=== PATIENT | female | born 1995 | race Caucasian/White ===

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

== ENCOUNTER → 2017-01-08 04:29 | Observation (INO) ==
[2017-01-08 03:49] LABS: Prothrombin Time 11.3 Seconds (9.4-12.1)
[2017-01-08 03:50] LABS: HIV-1&2 Antibody & p24 Ag Nonreactive (Nonreactive); Hepatitis B Surface Antigen Nonreactive (Nonreactive)
--- NOTE | 2017-01-08 04:27 | OB/GYN History & Physical ---
Date of Encounter: 01/08/17 Time of Encounter: 04:23 Assessment and Plan (1) 22 weeks gestation of Current visit: Yes Status: Acute admitted for observation (2) Fall Current visit: No Status: Acute Patient was triaged in ER and then sent to labor and delivery for observation. FHR appropriate for gestational age no contractions noted on monitor. History of Present Illness Chief complaint: FAll at 22w4d HPI: Ms. Newell is a 21 year old female per patient. Patient has no documentation of MABs. EDC 05/09/2017. Patient sees Dr. Dixon at [facility] but plans to deliver at [place] and would like to transfer care. Patient had a verbal altercation with someone around 2200 when she when to walk away she reported getting dizzy and possibly passing out. Patient states she fell straight back on her back and hit her head. Patient was seen an evaluated by ER. Patient was cleared by ER after CT scan and lab work. Patient reports +FM, denies LOF or VB. Patient denies any cramping at this time. Blood type is O+. Patient denies any problems with placenta. Patient reports she is scheduled in 2 weeks to see a provider at [facility]. Will request records. Patient plans to call OB office to request transfer of care. Past Med Surg Social Fam HX - Past Medical History Source: patient Medical history: no medical history Psychiatric history: anxiety, depression, panic disorder - Past Surgical History Surgical History: no surgical history - Social History Smoking Status: Never smoker Smokeless Tobacco Status: No Alcohol use: none Drug use: marijuana Activity Level: Independent ambulation Recent Out of Country Travel Within the Last 8 Weeks: No Exposure or Possible Exposure to Illness During Travel: No - Family History Mother Adopted: No Family Member Ethnicity: Non- Living Status: Still Living Hx Family Cardiac Disorders: No Hx Family Respiratory Disorders: Yes Hx Family Cancer: No Hx Family GI Disorders: Yes Hx Family Genitourinary Disorders: Yes Hx Family Endocrine Disorder: Yes Hx Family Musculoskeletal Disorders: No Hx Family Neuromuscular Disorders: No Hx Family Neurologic Disorders: No Hx Family HEENT Disorders: No Hx Family Autoimmune Disorders: No Hx Family Reproductive Disorders: No Hx Family Psychosocial Disorders: No Hx Family Medical Disorders: Yes (speep apnea) Obstetrical History - Pregnancies : 1 Para: 0 Term: 0 : 0 Ab's: 0 Medications and Allergies Icg042/Iron Fumarate/FA/Dss [ 19 Tablet] 1 tab PO DAILY 01/08/17 [ History] Allergies No Known Allergies Allergy (Verified 10/29/16 22:48) Review of System OB - Constitutional Constitutional ROS IM: headache(s) (Patient reported a headache after fall but no complaints at this time), no chills, no fatigue, no fever(s) - Cardiovascular Cardiovascular: no chest pain, no irregular heart rhythm, no palpitations, no syncope - Respiratory Respiratory: no cough - Gastrointestinal Gastrointestinal: no abdominal pain, no constipation, no cramping, no diarrhea, no heartburn, no nausea, no vomiting - Genitourinary Genitourinary: no abnormal vaginal bleeding, no dysuria, no flank pain, no urinary frequency, no urinary hesitancy, no urinary urgency, no vaginal discharge, no vaginal odor, no vaginal pruritis - Neurological Nerological: no abnormal speech, no confusion, no dizziness, no loss of vision, no syncope, no vertigo Exam - Constitutional Constitutional: well developed, well nourished, no acute distress, average body habitus - HEENT HEENT: Normocephaly, Mucus Membranes Moist - Neck Neck exam: full ROM, supple - Lungs Respiratory exam: CTAB - Cardiovascular Cardiovascular exam: RRR, +S1, +S2 - Abdomen Abdomen: Present: bowel sounds normal, gravid, non tender - Extremities Extremities exam: full ROM, normal capillary refill, normal inspection Deep Tendon Reflex Grade: 2+ Normal (no clonus) - Comments Comments: FHR 150 bpm per doppler. FF 2/U. Results All other labs normal. - VTE Reasons for not Prescribing Prophylaxis: Treatment not Indicated - Low risk for VTE
--- NOTE | 2017-01-08 04:35 | Discharge Summary ---
Date of Encounter: 01/08/17 Time of Encounter: 04:33 - Discharge Diagnosis (1) 22 weeks gestation of Priority: Primary Status: Acute Comments: patient for observation (2) Fall Priority: Secondary Status: Acute Comments: Patient evaluated in ED and L&D. Due to poor history patient was offered to stay until morning patient declines and requests to go home. - Discharge Medications Home Medications: Hkl523/Iron Fumarate/FA/Dss [ 19 Tablet] 1 tab PO DAILY 01/08/17 [ History] Allergies/Adverse Reactions: Allergies No Known Allergies Allergy (Verified 10/29/16 22:48) Data Procedures and tests throughout hospitalization: Laboratory Tests 01/08/17 01/08/17 01/08/17 03:00 03:00 03:00 PT 11.3 INR 1.0 Hep Bs Antigen Nonreactive HIV Ag/Ab Combo Qual Nonreactive Blood Type O POSITIVE Labs on day of discharge: Labs from last 24 hours 01/08/17 01/08/17 01/08/17 03:00 03:00 03:00 PT 11.3 INR 1.0 Hep Bs Antigen Nonreactive HIV Ag/Ab Combo Qual Nonreactive Blood Type O POSITIVE Date of admission: 01/08/17 02:38 Primary care physician: Nikhil Moran, Discharging clinician: Neetu Tao Anticipated date of discharge: 01/08/17 - Patient Status Disposition: Home, Self-Care Condition: Good Functional capacity at discharge: independent ambulation - Discharge Instructions Follow Up With: Nikhil Moran MD [Primary Care Provider] - Additional Instructions: LABOR AND DELIVERY DISCHARGE INSTRUCTIONS Signs and Symptoms to be Reported to your Doctor Immediately: * Sudden gush, continuous or intermittent lead of fluid from vagina (note the time of gush and color of fluid) * Onset of bright red vaginal bleeding with or without pain (if you had a vaginal exam during this visit you may notice some dark red spotting. This is normal.) * Lower abdominal cramping or backache that is premenstrual-like feeling. * More than 6 contractions in one hour. * Burning during urination, having to urinate more frequently or pain in your mid-back. * A change in the baby's activity. This could be an increase or decrease in activity. * Severe headache which does not go away with tylenol. * Sudden swelling in the face, hands, arms and/or legs. * Upper abdominal pain - sometimes associated with heartburn or nausea and is not relieved by Maalox, Mylanta or Tums. * Dizziness or blurred vision or visual disturbances (seeing stars/lights). * Kick Counts One hour after a meal, lay down on one side in a quiet place. Count the number of marcelle the baby moves during an hour. If less than 6 movements, notify your physician. Diet: *Force fluids - 8-10 tall glasses of fluid per day. May include popsicles and jello. 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
[2017-01-09 11:30] LABS: Varicella Zoster IgG Antibody Positive
[2017-01-09 14:15] LABS: Rubella IgG Antibody POSITIVE (POSITIVE)
== END | disposition home or self-care (01) ==
LOC: 1NENULAB
PROVIDERS: ADMIT Advanced Practice Midwife; ATTEND Advanced Practice Midwife

== ENCOUNTER 2017-02-16 | Observation (INO) ==
[2017-02-16 00:08] LABS: Bilirubin,Urine Small (Negative); Blood,Urine Negative (Negative); Clarity,Urine Cloudy (Clear); Color,Urine Dark Yellow (Yellow); Glucose,Urine (UA) Normal (Normal); Ketones,Urine Negative (Negative); Leukocyte Esterase,Urine Small (Negative); Nitrite,Urine Negative (Negative); PH,Urine 6.5 pH Units (5.0-8.0); Protein,Urine Trace mg/dL (Neg-Trace); Specific Gravity,Urine 1.028 (1.010-1.025); Urobilinogen,Urine Normal (Normal)
[2017-02-16 00:10] LABS: Bacteria,Urine Few per hpf (None-Few); Hyaline Casts,Urine None Seen per lpf (None-Few); RBC,Urine 0-3 per hpf (0-3); Squamous Epithelial Cell,Urine Many per lpf (None-Few)
[2017-02-16 00:50] LABS: Amphetamine Screen,Urine Negative ng/mL (Cutoff=1000); Barbiturate Screen,Urine Negative ng/mL (Cutoff=200); Benzodiazepines Screen,Urine Negative ng/mL (Cutoff=200); Cannabinoid Screen,Urine Negative ng/mL (Cutoff = 50); Cocaine Screen,Urine Negative ng/mL (Cutoff= 300); Opiate Screen,Urine Negative ng/mL (Cutoff=300); Phencyclidine Screen,Urine Negative ng/mL (Cutoff=25)
--- NOTE | 2017-03-03 10:57 | OB/GYN Progress Note ---
Date of Encounter: 03/03/17 Time of Encounter: 10:56 (Triaged by RN) - Assessment and Plan (1) Threatened labor Status: Acute Qualifiers: Trimester: unspecified trimester Qualified Code(s): O47.00 - False labor before 37 completed weeks of gestation, unspecified trimester; O60.00 - labor without delivery, unspecified trimester Objective - Labs Labs: Abnormal lab results Urine Clarity Cloudy (Clear) A 02/15/17 23:50 Ur Specific [place] 1.028 (1.010-1.025) H 02/15/17 23:50 Urine Bilirubin Small (Negative) H 02/15/17 23:50 Ur Leukocyte Esterase Small (Negative) H 02/15/17 23:50 Urine Microscopic WBC 5-15 per hpf (0-3) H 02/15/17 23:50 Ur Squamous Epith Cells Many per lpf (None-Few) H 02/15/17 23:50 Ur Culture Indicated? YES (NO) A 02/15/17 23:50
== END 2017-02-16 00:47 | disposition home or self-care (01) ==
LOC: 1NENULAB

== ENCOUNTER → 2017-04-11 02:00 | Observation (INO) ==
[2017-04-11 00:28] LABS: Bilirubin,Urine Negative (Negative); Blood,Urine Negative (Negative); Clarity,Urine Turbid (Clear); Color,Urine Yellow (Yellow); Glucose,Urine (UA) Normal (Normal); Ketones,Urine Negative (Negative); Leukocyte Esterase,Urine Moderate (Negative); Nitrite,Urine Negative (Negative); Protein,Urine 30 mg/dL (Neg-Trace); Specific Gravity,Urine > 1.030 (1.010-1.025); Urobilinogen,Urine Normal (Normal)
[2017-04-11 00:30] LABS: Bacteria,Urine Few per hpf (None-Few); RBC,Urine 0-3 per hpf (0-3); Squamous Epithelial Cell,Urine Moderate per lpf (None-Few)
[2017-04-11 00:31] LABS: Amphetamine Screen,Urine Negative ng/mL (Cutoff=1000); Barbiturate Screen,Urine Negative ng/mL (Cutoff=200); Benzodiazepines Screen,Urine Negative ng/mL (Cutoff=200); Cannabinoid Screen,Urine Negative ng/mL (Cutoff = 50); Cocaine Screen,Urine Negative ng/mL (Cutoff= 300); Opiate Screen,Urine Negative ng/mL (Cutoff=300); Phencyclidine Screen,Urine Negative ng/mL (Cutoff=25)
--- NOTE | 2017-04-11 00:43 | Discharge Summary ---
Date of Encounter: 04/11/17 Time of Encounter: 00:43 - Discharge Diagnosis (1) Vaginal discharge during Priority: Primary Status: Acute Comments: Ms Susana rivera at 35 weeks gestation presents to labor and delivery triage by squad with c/o leaking of fluid from her vagina. She is a poor historian. She does not know what medications she takes. States she has gestational diabetes, but does not check blood sugar. She also states that she has vaginal herpes and warts, but is not sure what medication she is on. She denies headache, vision changes, epigastric pain, vaginal bleeding, and cramping. She states she has not hand intercourse in the past 48 hours, but states that she douches frequently and often takes baths. Encouraged patient to stop douching and to stop taking frequent baths as this is likely contributing to her vaginal discharge and discomfort. NST -reactive Urinalysis - dehydration, encouraged to increase oral water intake and decrease all other oral liquid intake nitrazine - negative, negative for pooling - no discharge on noted on glove. SVE - 1-2/thick/high posterior Discharge home with routine follow up for care with Dr Jones. Encouraged patient to drive to be seen where her physician can see her. Discussed the importance of the being seen for care with her primary OB /COMPUTER TECH. Qualifiers: Trimester: third trimester Qualified Code(s): O26.893 - Other specified related conditions, third trimester; N89.8 - Other specified noninflammatory disorders of vagina (2) NST (non-stress test) reactive Priority: Secondary Status: Acute Comments: Reactive NST Category I tracing (3) 35 weeks gestation of Priority: Secondary Status: Acute - Discharge Medications Home Medications: Ftf938/Iron Fumarate/FA/Dss [ 19 Tablet] 1 tab PO DAILY 01/08/17 [ History] Allergies/Adverse Reactions: 3 Allergy/AdvReac Type Severity Reaction Status Date / Time No Known Allergies Allergy Verified 02/15/17 23:34 Data Procedures and tests throughout hospitalization: Laboratory Tests 04/11/17 00:19 Urine Color Yellow Urine Clarity Turbid A Urine pH 6.0 Ur Specific [place] > 1.030 H Urine Protein 30 H Urine Glucose (UA) Normal Urine Ketones Negative Urine Blood Negative Urine Nitrite Negative Urine Bilirubin Negative Urine Urobilinogen Normal Ur Leukocyte Esterase Moderate H Urine Microscopic RBC 0-3 Urine Microscopic WBC 3-5 H Ur Squamous Epith Cells Moderate H Urine Bacteria Few Ur Culture Indicated? YES A Labs on day of discharge: Labs from last 24 hours 04/11/17 00:19 Urine Color Yellow Urine Clarity Turbid A Urine pH 6.0 Ur Specific [place] > 1.030 H Urine Protein 30 H Urine Glucose (UA) Normal Urine Ketones Negative Urine Blood Negative Urine Nitrite Negative Urine Bilirubin Negative Urine Urobilinogen Normal Ur Leukocyte Esterase Moderate H Urine Microscopic RBC 0-3 Urine Microscopic WBC 3-5 H Ur Squamous Epith Cells Moderate H Urine Bacteria Few Ur Culture Indicated? 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 No decels. No contractions noted per toco or palpation. Category I tracing. Reactive NST - Extremities Exam Extremities exam IM: Present: normal capillary refill, normal inspection, radial pulses palpable and symmetrical - Neurological Exam Neurological exam: alert, oriented X3 - VTE Reasons for not Prescribing Prophylaxis: Treatment not Indicated - Low risk for VTE
[~2017-04-11 02:00] MED LIST changes: +FLUARIX QUAD 2017-18 36MOS UP/PF 0.5 ML SYRINGE IM ONE; -Mag Hydrox/Al Hydrox/Simeth 30 ML UDC PO ONE
== END | disposition home or self-care (01) ==
LOC: 1NENULAB
PROVIDERS: ADMIT Obstetrics & Gynecology; ATTEND Obstetrics & Gynecology

== ENCOUNTER 2017-05-04 11:41 | Inpatient (IN) ==
[2017-05-04] MEDS ORDERED: Ondansetron 4 MG/2 ML VIAL IVP PRN (12:27)
[2017-05-04] MEDS ORDERED: Famotidine 20 MG/2 ML VIAL IVP PRN (12:27)
[2017-05-04] MEDS ORDERED: Metoclopramide 10 MG/2 ML VIAL IVP PRN (12:27)
[2017-05-04] MEDS ORDERED: Ringers Solution, Lactated 1,000 ML IVC SCH (12:30)
[2017-05-04 12:46] LABS: Basophils % 0.3 %; Eosinophils % 0.1 %; Hematocrit 31.4 % (35.3-44.9); Hemoglobin 10.3 g/dL (11.5-15.4); Immature Granulocytes % 0.4 % (0-4); Lymphocytes # 3.1 K/mcL (0.6-4.6); Lymphocytes % 22.5 %; Mean Corpuscular HGB Conc 32.8 g/dL (31.6-35.5); Mean Corpuscular Hemoglobin 28.1 pg (28.0-33.3); Mean Corpuscular Volume 85.8 fL (83.0-100.0); Mean Platelet Volume 10.3 fL (9.4-12.4); Monocytes # 0.8 K/mcL (0.0-1.3); Monocytes % 5.6 %; Neutrophils # 9.9 K/mcL (1.6-8.9); Platelet Count 204 K/mcL (140-400); Red Blood Count 3.66 M/mcL (3.82-4.97); Red Cell Distribution Width 14.8 % (11.5-14.5); Segmented Neutrophils % 71.1 %
[2017-05-04] MEDS ORDERED: Penicillin G Potassium 5,000,000 UNIT in D5% in Water (Mini-Bag+) 100 ML IVPB ONE (12:54)
[2017-05-04 13:25] LABS: Amphetamine Screen,Urine Negative ng/mL (Cutoff=1000); Barbiturate Screen,Urine Negative ng/mL (Cutoff=200); Benzodiazepines Screen,Urine Negative ng/mL (Cutoff=200); Cannabinoid Screen,Urine Negative ng/mL (Cutoff = 50); Cocaine Screen,Urine Negative ng/mL (Cutoff= 300); Opiate Screen,Urine Negative ng/mL (Cutoff=300); Phencyclidine Screen,Urine Negative ng/mL (Cutoff=25)
--- NOTE | 2017-05-04 13:39 | OB/GYN History & Physical ---
Date of Encounter: 05/04/17 Time of Encounter: 13:19 Assessment and Plan (1) 38 weeks gestation of Current visit: Yes Status: Acute admitted for SROM Will treat with PCN prophylaxis due to unknown GBS status (2) Herpes simplex Current visit: Yes Status: Acute Patient taking acyclovir daily. History of Present Illness Chief complaint: SROM HPI: Ms. Newell is a 21 year old female @ 38w6d presents to labor and delivery with c/o SROM at 0500 this morning at . Patient reports irregular contractions. Patient denies any color or odor to fluid. Patient receives care by Dr. Jones at [facility]. We have received records however GBS culture results are unknown. Will start PCN per protocol. Patient reports she has GDM and was given a po medication for it she is unsure of the name of the medication however, we have the results to her 1 hour gtt at 115 which is normal. Patient also reports history of herpes and is taking Acylovir daily. Blood type: O+, Rubella: Immune, Hep B: Nonreactive. Past Med Surg Social Fam HX - Past Medical History Source: patient Medical history: asthma Psychiatric history: anxiety, ADHD, depression, panic disorder - Past Surgical History Surgical History: no surgical history - Social History Smoking Status: Former smoker Smokeless Tobacco Status: No Alcohol use: none Drug use: marijuana, methamphetamine Occupational status: employed Current living situation: Home - Independent Activity Level: Independent ambulation Recent Out of Country Travel Within the Last 8 Weeks: No Exposure or Possible Exposure to Illness During Travel: No - Family History Mother Adopted: No Family Member Ethnicity: Non- Living Status: Still Living Hx Family Cardiac Disorders: No Hx Family Respiratory Disorders: Yes Hx Family Cancer: No Hx Family GI Disorders: Yes Hx Family Endocrine Disorder: Yes Hx Family Neuromuscular Disorders: No Hx Family Neurologic Disorders: No Hx Family HEENT Disorders: No Hx Family Autoimmune Disorders: No Obstetrical History - Pregnancies : 5 Para: 0 Term: 0 : 0 Ab's: 0 Livin Medications and Allergies [id number]/Iron Fumarate/FA/Dss [ 19 Tablet] 1 tab PO DAILY 01/08/17 [ History] Acyclovir [Zovirax] 400 mg PO DAILY 05/04/17 [History] 3 Allergy/AdvReac Type Severity Reaction Status Date / Time No Known Allergies Allergy Verified 02/15/17 23:34 Review of System OB - Constitutional Constitutional ROS IM: headache(s), no chills, no fever(s) - Cardiovascular Cardiovascular: no chest pain, no edema, no palpitations, no pedal edema, no rapid heart rate, no syncope - Respiratory Respiratory: no cough - Gastrointestinal Gastrointestinal: cramping, no diarrhea, no heartburn, no nausea, no vomiting - Genitourinary Genitourinary: vaginal discharge, no abnormal vaginal bleeding, no flank pain, no urinary incontinence, no urinary urgency, no vaginal odor Exam - Constitutional Constitutional: well developed, well nourished, no acute distress, average body habitus - HEENT HEENT: Normocephaly, Mucus Membranes Moist - Neck Neck exam: full ROM, supple - Lungs Respiratory exam: CTAB - Cardiovascular Cardiovascular exam: RRR, +S1, +S2 - Abdomen Abdomen: Present: bowel sounds normal, gravid, non tender - Extremities Extremities exam: full ROM, normal inspection Deep Tendon Reflex Grade: 2+ Normal - Cervix Dilation: 3 Effacement: 80 Station: -2 - Uterus Uterus exam: Present: normal size, normal contour - Anus/Rectum Anus/Rectum: Present: normal perianal skin - Comments Comments: FHR 140 bpm moderate variability +15x15 accels no decels noted. Cat. 1 tracing. Contractions irregular. Results Result Diagrams: 05/04/17 12:35 Abnormal lab results WBC 13.9 K/mcL (4.3-11.1) H 05/04/17 12:35 RBC 3.66 M/mcL (3.82-4.97) L 05/04/17 12:35 Hgb 10.3 g/dL (11.5-15.4) L 05/04/17 12:35 Hct 31.4 % (35.3-44.9) L 05/04/17 12:35 RDW 14.8 % (11.5-14.5) H 05/04/17 12:35 Neutrophils # 9.9 K/mcL (1.6-8.9) H 05/04/17 12:35 All other labs normal. - VTE Reasons for not Prescribing Prophylaxis: Treatment not Indicated - Low risk for VTE
[2017-05-04] MEDS ORDERED: *HR* Nalbuphine 20 MG/ML AMPUL IVP PRN (14:47)
[2017-05-04] MEDS ORDERED: *HR* Nalbuphine 20 MG/ML AMPUL ONE (14:51)
[2017-05-04] MEDS: Penicillin G Potassium 2,500,000 UNIT in D5% in Water 100 ML IVPB SCH ×2 (16:30→20:01)
[2017-05-04] MEDS ORDERED: Oxytocin 20 units/ LR 1000 mL 20 UNIT/1,000 ML BAG IVC SCH (17:00)
--- NOTE | 2017-05-04 17:23 | OB Labor Progress Note ---
Date of Encounter: 05/04/17 Time of Encounter: 17:21 Labor Progress Note - Subjective Subjective: Patient reports contractions are getting stronger. Discussed POC with patient. Patient denies any questions or concerns. - Cervix Cervix: 5/100/-1 - Heart Tones Heart Tones: 135 bpm moderate variability +15x15 accels no decels noted. - [place]: irregular contractions - Interventions Interventions: SVE, IUPC placed without difficulty. - Plan Plan: Patient ready for epidural for pain management. Anesthesia notified.
[2017-05-04] MEDS ORDERED: Epidural Premix (fent/bupiv) 110 ML EP ONE (17:40)
--- NOTE | 2017-05-04 18:20 | OB Labor Progress Note ---
Date of Encounter: 05/04/17 Time of Encounter: 18:18 Labor Progress Note - Subjective Subjective: Patient resting with epidural in placed. - Cervix Cervix: 6/100/0 - Heart Tones Heart Tones: 135 bpm moderate variability +15x15 accels no decels noted. - [place]: 3-4 min apart - Interventions Interventions: SVE - Plan Plan: Continue labor management.
--- NOTE | 2017-05-04 19:49 | OB Labor Progress Note ---
Date of Encounter: 05/04/17 Time of Encounter: 19:47 Labor Progress Note - Subjective Subjective: Patient resting comfortably with epidural in place. Patient reports some pressure. Discussed POC with patient. Patient denies any questions or concerns. - Cervix Cervix: 9.5/100/0 - Heart Tones Heart Tones: 130 bpm moderate variability +15x15 accels no decels noted. Cat. 1 tracing. - [place]: 2-3 min apart - Interventions Interventions: SVE - Plan Plan: Continue labor management.
[2017-05-04] MEDS ORDERED: Acetaminophen 325 MG TABLET PO PRN ×2 (20:27→22:17)
--- NOTE | 2017-05-04 21:27 | Anesthesia Evaluation PreOp ---
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 History: Other (ADHD ASTHMA HPV HERPES) Other Medical History: Denies Any Significant HX Anesthesia History: No Prior Anesthetic Complications : Yes Test: Positive Alcohol Use: none Drug use: none, marijuana, methamphetamine Medications and Allergies [id number]/Iron Fumarate/FA/Dss [ 19 Tablet] 1 tab PO DAILY 01/08/17 [ History] Acyclovir [Zovirax] 400 mg PO DAILY 05/04/17 [History] 3 Allergy/AdvReac Type Severity Reaction Status Date / Time No Known Allergies Allergy Verified 02/15/17 23:34 - Meds/Allergy Pre-op Review Medications Reviewed: Yes Allergies Reviewed: Yes Beta Blockers on Current Med List: No Anesthesia Results - Labs 05/04/17 12:35 Anesthesia Exam - HEENT Pupil (Motor): Pupils equal Mallampati: II Teeth: Normal Oral Opening: Greater than 3 - FEEDER CATCHER LOC: Oriented FEEDER CATCHER Motor: Normal RUE, Normal LUE, Normal RLE, Normal LLE, Normal Face FEEDER CATCHER Sensory: Normal: RUE, LUE, RLE, LLE, Face - Cardiac Rhythm: Regular Murmur: None JVD: No Carotid Bruit: No - Pulmonary Breath Sounds: bilateral Clear Respiratory Effort: Symmetrical Anesthesia Assess/Plan ASA Score: 2 Modified Nitish Scale for Level of Consciousness: Cooperative, oriented, and tranquil Anesthetic Plan: Regional Autologous Blood: No Monitoring Plan: Standard Monitors
[2017-05-04] MEDS: Oxytocin 20 units/ LR 1000 mL 20 UNIT/1,000 ML BAG IVC SCH ×2 (21:30→22:53)
[2017-05-04] MEDS ORDERED: Epidural Premix (fent/bupiv) 110 ML EP SCH (21:30)
--- NOTE | 2017-05-04 21:30 | Anesthesia Procedures ---
Date of Encounter: 05/04/17 Time of Encounter: 17:30 Procedures: Anesthesia - Epidural/Spinal Patient ID/Chart reviewed: Yes Patient examined: Yes OB Eval: Gestational age: 38.6 OB Eval: : 5 OB Eval: Contractions: Non-stressed pattern Consent Obtained: Yes Supplemental Oxygen: None/Room Air Site Prep: Aseptic Technique, Sterile prep and drape, Povidone-Iodine 1% Patient position: upright Local Anesthetic: Lidocaine 1% Amount of Local Anesthetic used: 3 Touhy Needle Gauge: 18 Touhy Needle Depth (cm): 6 Catheter Depth at Skin (cm): 7 Test Dose (1.5% Lido + Epi): Volume given (mls): 3 Test Dose Result: Negative Infusion Med: 0.125% Bupivacaine w/ 2 mcg/ml Fentanyl Infusion Rate (mls/hr): [address]: Tegaderm, Tape Interspace Used: L4-L5 Loss of Resistance (KRYSTAL): Yes Blood: No CSF: No Paresthesia: No Procedure: stable see nursing notes
--- NOTE | 2017-05-04 21:51 | OB/GYN Procedure Note ---
Delivery - Delivery Date: 05/04/17 Provider: Neetu Tao Intrapartum events: none Delivery induction: none Delivery monitor: external FHT, external uterine Anesthesia: epidural Estimated Blood Loss: 150 - (s) A Infant Delivery Date: 05/04/17 Delivery Time: 21:23 Presentation: vertex Position: JUAN CARLOS Route of delivery: Gender: Female Viability: Viable Pounds: 7 Ounces: 3 Weight Gram: 3260 kg at 1 minute: 8 at 5 mins: 9 Shoulder Dystocia: not encountered Specimens collected: cord blood Placenta: spontaneous Cord: 3 umbilical vessels - Repair Episiotomy: none Laceration Description: Vaginal (repaired with 3-0 vicryl) - Complications Delivery complications: none - Disposition Mom disposition: stable in LDR disposition: stable in LDR - Comments Comments: Called to LDR for delivery. Patient feeling pressure. Patient was complete and + 1. Patient was placed in stirrups and prepped for vaginal delivery. Under maternal effort patient spontaneously delivered a viable female over an intact perineum. No nuchal, no meconium or shoulder dystocia encountered. Infant was placed on maternal abdomen. Cord was clamped and cut after pulsation ceased. Cord blood collected. A small vaginal laceration was noted and repaired with 3-0 vicryl. Both Mother and are stable in LDR for recovery. All counts are correct.
[2017-05-04] MEDS ORDERED: Lanolin 7 G OINT...G. TP PRN (22:17)
[2017-05-04] MEDS: Ibuprofen 600 MG TABLET PO PRN (22:50)
--- NOTE | 2017-05-05 08:51 | Discharge Summary ---
Date of Encounter: 05/05/17 Time of Encounter: 08:49 - Discharge Diagnosis (1) Status post vaginal delivery Priority: Primary Status: Acute (2) 38 weeks gestation of Priority: Secondary Status: Resolved (3) Herpes simplex Priority: Secondary Status: Chronic - Discharge Medications Prescriptions: Ibuprofen [Motrin] 600 mg PO Q6HR PRN #60 tablet PRN Reason: Cramping Docusate [Colace] 100 mg PO BID #30 capsule Ferrous Sulfate 325 mg PO DAILY #30 tablet Home Medications: [id number]/Iron Fumarate/FA/Dss [ 19 Tablet] 1 tab PO DAILY 01/08/17 [ History] Acyclovir [Zovirax] 400 mg PO DAILY 05/04/17 [History] Docusate [Colace] 100 mg PO BID #30 capsule 05/05/17 [Rx] Ferrous Sulfate 325 mg PO DAILY #30 tablet 05/05/17 [Rx] Ibuprofen [Motrin] 600 mg PO Q6HR PRN #60 tablet 05/05/17 [Rx] Lanolin [Lansinoh] 1 appl TP TID PRN oint...g. 05/05/17 [Rx] Allergies/Adverse Reactions: 3 Allergy/AdvReac Type Severity Reaction Status Date / Time No Known Allergies Allergy Verified 02/15/17 23:34 Data Procedures and tests throughout hospitalization: Laboratory Tests 05/04/17 05/04/17 11:59 12:35 WBC 13.9 H RBC 3.66 L Hgb 10.3 L Hct 31.4 L MCV 85.8 MCH 28.1 MCHC 32.8 RDW 14.8 H Plt Count 204 MPV 10.3 Immature Gran % 0.4 Seg Neutrophils % 71.1 Lymphocytes % 22.5 Monocytes % 5.6 Eosinophils % 0.1 Basophils % 0.3 Neutrophils # 9.9 H Lymphocytes # 3.1 Monocytes # 0.8 Eosinophils # 0.0 Basophils # 0.0 Urine Opiates Screen Negative Ur Barbiturates Screen Negative Ur Phencyclidine Scrn Negative Ur Amphetamines Screen Negative U Benzodiazepines Scrn Negative Urine Cocaine Screen Negative U Marijuana (THC) Screen Negative Labs on day of discharge: Labs from last 24 hours 05/04/17 05/04/17 12:35 11:59 WBC 13.9 H RBC 3.66 L Hgb 10.3 L Hct 31.4 L MCV 85.8 MCH 28.1 MCHC 32.8 RDW 14.8 H Plt Count 204 MPV 10.3 Immature Gran % 0.4 Seg Neutrophils % 71.1 Lymphocytes % 22.5 Monocytes % 5.6 Eosinophils % 0.1 Basophils % 0.3 Neutrophils # 9.9 H Lymphocytes # 3.1 Monocytes # 0.8 Eosinophils # 0.0 Basophils # 0.0 Urine Opiates Screen Negative Ur Barbiturates Screen Negative Ur Phencyclidine Scrn Negative Ur Amphetamines Screen Negative U Benzodiazepines Scrn Negative Urine Cocaine Screen Negative U Marijuana (THC) Screen Negative Date of admission: 05/04/17 11:41 Primary care physician: PCP NONE Consults: 05/04/17 22:17 Consult to Elementary Supervisor [CONS] Routine Comment: Vaginal delivery, consult needed Consult to Edger Feeder [CONS] Routine Reason for SW Consult: + UDS Discharging clinician: Shirin Jackson Anticipated date of discharge: 05/05/17 - Patient Status Disposition: Home, Self-Care Condition: Good Functional capacity at discharge: independent ambulation Overall status at discharge: patient is progressing back to baseline - Discharge Instructions Follow Up With: NONE,PCP [Primary Care Provider] - Neetu Tao CNM [Non-Partnered Physician] - - Diet and Activity Activity: increase activity as tolerated Diet: advance to your usual diet Hospital Course Reason for admission: rupture of membranes Delivery: Episiotomy: none Laceration: vaginal side wall (repaired with 3-0 vicryl) Other procedures: none complications: none Discharge diagnosis: IUP at term delivered baby: female Hospital course: Ms. Newell is a 21 year old female at 38w6d who presented to labor and delivery with c/o SROM at 0500 05/04 with irregular contractions. Patient denied any color or odor to fluid. Patient receives care by Dr. Jones at [facility]. We have received records however GBS culture results are unknown. PCN started per protocol. Patient reports she has GDM and was given a po medication for it she is unsure of the name of the medication however, we have the results to her 1 hour gtt at 115 which is normal. Patient also reports history of herpes and is taking Acylovir daily. An IUPC was placed to monitor contractions. The patient received an epidural. Patient progressed to complete. Under maternal effort patient spontaneously delivered a viable female infant over an intact perineum. No nuchal, no meconium or shoulder dystocia encountered. was placed on maternal abdomen. Cord was clamped and cut after pulsation ceased. Cord blood collected. A small vaginal laceration was noted and repaired with 3-0 vicryl. Patient doing well post-op with minimal pain. Will be discharged home in stable condition with rx for ibuprofen, colace and iron. Time Attestation: Total time spent providing and/or coordinating discharge services: Time Spent: Less than 30 minutes Exam - Constitutional Vitals: Temp Pulse Resp BP Pulse Ox 97.8 F 76 16 109/70 97 05/05/17 02:00 05/05/17 02:00 05/05/17 04:30 05/05/17 02:00 05/05/17 01:00 General appearance IM: cooperative, A&O X 3, pleasant, no acute distress, answers questions appropriately - Respiratory Respiratory exam: Present: CTAB - Cardiovascular Cardiovascular exam IM: Present: RRR, +S1, +S2 - GI/Abdominal GI/Abdominal exam IM: normal bowel sounds, soft, tenderness - Rectal Rectal exam: deferred - Uterine Tone: Firm Uterus Position: 2 Fingers Above Umbilicus - Extremities Exam Extremities exam IM: Present: normal capillary refill, normal inspection, radial pulses palpable and symmetrical. Absent: calf tenderness, pedal edema, tenderness - Neurological Exam Neurological exam: alert, oriented X3, no focal deficits, strengths equal and symetr throughout - Attending Attestation I examined this patient and my medical decision-making was reviewed with the Resident Physician. I agree with the documented findings, disposition and treatment plan as described. Jody Carrion CNM
[2017-05-05] MEDS ORDERED: Prenatal Vit/FA 1 EACH TABLET PO SCH (09:00)
[2017-05-05] MEDS: Ibuprofen 600 MG TABLET PO PRN ×2 (09:58→21:21)
[2017-05-05 21:03] VITALS: BP 116/76
== END 2017-05-05 22:30 | disposition home or self-care (01) | DRG 560 ==
LOC: 1NENULAB → OBSVTOIN 11:41 → 1NENUOBS 23:58
PROVIDERS: ADMIT Obstetrics & Gynecology; ATTEND Obstetrics & Gynecology

== ENCOUNTER → 2018-05-11 21:58 | Observation (INO) ==
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
[2018-05-11 21:49] LABS: Amphetamine Screen,Urine Negative ng/mL (Cutoff=1000); Barbiturate Screen,Urine Negative ng/mL (Cutoff=200); Benzodiazepines Screen,Urine Negative ng/mL (Cutoff=200); Cannabinoid Screen,Urine Negative ng/mL (Cutoff = 50); Cocaine Screen,Urine Negative ng/mL (Cutoff= 300); Opiate Screen,Urine Negative ng/mL (Cutoff=300); Phencyclidine Screen,Urine Negative ng/mL (Cutoff=25)
[2018-05-11 22:05] LABS: Trichomonas DNA Not Detected (Not Detect)
[2018-05-11 22:06] LABS: Candida DNA Not Detected (Not Detect); Gardnerella DNA Not Detected (Not Detect)
== END | disposition home or self-care (01) ==
LOC: 1NENULAB
PROVIDERS: ADMIT Obstetrics & Gynecology; ATTEND Obstetrics & Gynecology

== ENCOUNTER 2020-07-09 22:12 | Observation (INO) ==
[2020-07-09 22:33] LABS: Hematocrit 31.1 % (35.3-44.9); Hemoglobin 10.2 g/dL (11.5-15.4); Mean Corpuscular HGB Conc 32.8 g/dL (31.6-35.5); Mean Corpuscular Hemoglobin 28.3 pg (28.0-33.3); Mean Corpuscular Volume 86.1 fL (83.0-100.0); Mean Platelet Volume 10.4 fL (9.4-12.4); Platelet Count 206 K/mcL (140-400); Red Blood Count 3.61 M/mcL (3.82-4.97); Red Cell Distribution Width 13.6 % (11.5-14.5); White Blood Count 12.5 K/mcL (4.3-11.1)
[2020-07-09 22:40] VITALS: BP 106/67
[2020-07-09 22:44] LABS: INR 1.1; Prothrombin Time 12.2 Seconds (9.4-12.1)
[2020-07-09 22:46] LABS: Activated Partial Thrombo Time 20.7 Seconds (26.0-36.0)
[2020-07-09] MEDS ORDERED: Acetaminophen 325 MG TABLET PO ONE (23:09)
[2020-07-09] MEDS ORDERED: Terconazole Vag CRM 20 GM TUBE VG SCH (23:15)
[2020-07-09 23:20] LABS: Amorphous Sediment,Urine Few per hpf (None-Few); Bacteria,Urine Few per hpf (None-Few); Bilirubin,Urine Negative (Negative); Blood,Urine Negative (Negative); Clarity,Urine Turbid (Clear); Color,Urine Yellow (Yellow); Glucose,Urine (UA) Normal (Normal); Ketones,Urine Negative (Negative); Leukocyte Esterase,Urine Large (Negative); Mucus,Urine Few per lpf (None-Few); Nitrite,Urine Negative (Negative); Protein,Urine 50 mg/dL (Neg-Trace); RBC,Urine 15-30 per hpf (0-3); Specific Gravity,Urine 1.026 (1.010-1.025); Squamous Epithelial Cell,Urine Moderate per hpf (None-Few); Urobilinogen,Urine Normal (Normal); WBC,Urine 15-30 per hpf (0-3)
== END 2020-07-10 02:10 | disposition home or self-care (01) ==
LOC: 1NENULAB
PROVIDERS: ADMIT Obstetrics & Gynecology; ATTEND Obstetrics & Gynecology

== ENCOUNTER 2020-07-28 17:40 | Observation (INO) ==
[2020-07-28 19:39] LABS: Bacteria,Urine Few per hpf (None-Few); Bilirubin,Urine Negative (Negative); Blood,Urine Negative (Negative); Clarity,Urine Clear (Clear); Color,Urine Yellow (Yellow); Glucose,Urine (UA) 70 mg/dL (Normal); Ketones,Urine Negative (Negative); Leukocyte Esterase,Urine Small (Negative); Mucus,Urine Few per lpf (None-Few); Nitrite,Urine Negative (Negative); PH,Urine 6.5 pH Units (5.0-8.0); Protein,Urine Trace mg/dL (Neg-Trace); RBC,Urine 0-3 per hpf (0-3); Specific Gravity,Urine 1.022 (1.010-1.025); Squamous Epithelial Cell,Urine Few per hpf (None-Few); Urobilinogen,Urine Normal (Normal)
== END 2020-07-28 19:53 | disposition home or self-care (01) ==
LOC: 1NENULAB
PROVIDERS: ADMIT Advanced Practice Midwife; ATTEND Advanced Practice Midwife

== ENCOUNTER 2020-07-30 02:22 | Observation (INO) ==
[2020-07-30 05:01] LABS: Bacteria,Urine Few per hpf (None-Few); Bilirubin,Urine Negative (Negative); Blood,Urine Large (Negative); Clarity,Urine Turbid (Clear); Color,Urine Yellow (Yellow); Glucose,Urine (UA) Normal (Normal); Ketones,Urine Trace mg/dL (Negative); Leukocyte Esterase,Urine Negative (Negative); Mucus,Urine Few per lpf (None-Few); Nitrite,Urine Negative (Negative); Protein,Urine 30 mg/dL (Neg-Trace); RBC,Urine 50-100 per hpf (0-3); Specific Gravity,Urine 1.025 (1.010-1.025); Squamous Epithelial Cell,Urine Few per hpf (None-Few); Urobilinogen,Urine Normal (Normal); WBC,Urine 0-3 per hpf (0-3)
[2020-07-30 05:09] LABS: Amphetamine Screen,Urine Negative ng/mL (Cutoff=1000); Barbiturate Screen,Urine Negative ng/mL (Cutoff=200); Benzodiazepines Screen,Urine Negative ng/mL (Cutoff=200); Cannabinoid Screen,Urine Negative ng/mL (Cutoff = 50); Cocaine Screen,Urine Negative ng/mL (Cutoff= 300); Opiate Screen,Urine Negative ng/mL (Cutoff=300); Phencyclidine Screen,Urine Negative ng/mL (Cutoff=25)
[2020-07-30 05:44] LABS: Basophils % 0.3 %; Eosinophils # 0.1 K/mcL (0.0-0.6); Eosinophils % 0.3 %; Hematocrit 32.1 % (35.3-44.9); Hemoglobin 10.1 g/dL (11.5-15.4); Immature Granulocytes % 0.5 % (0-4); Lymphocytes # 3.7 K/mcL (0.6-4.6); Lymphocytes % 25.5 %; Mean Corpuscular HGB Conc 31.5 g/dL (31.6-35.5); Mean Corpuscular Hemoglobin 27.4 pg (28.0-33.3); Mean Platelet Volume 10.3 fL (9.4-12.4); Monocytes # 0.9 K/mcL (0.0-1.3); Monocytes % 6.4 %; Neutrophils # 9.7 K/mcL (1.6-8.9); Platelet Count 195 K/mcL (140-400); Red Blood Count 3.69 M/mcL (3.82-4.97); Red Cell Distribution Width 13.9 % (11.5-14.5); White Blood Count 14.4 K/mcL (4.3-11.1)
[2020-07-30 05:45] LABS: Protein/Creatinine Ratio,Urine 0.15 mg/mg (0.00-0.20)
[2020-07-30 06:01] LABS: Alanine Aminotransferase 12 Units/L (7-52); Aspartate Amino Transferase 14 Units/L (13-39); BUN/Creatinine Ratio 13 (6-26); Blood Urea Nitrogen 5 mg/dL (6-20); Lactate Dehydrogenase 127 Units/L (140-271); Uric Acid 5.2 mg/dL (2.3-7.6); eGFR For African Americans > 60 (> 60); eGFR For Non-African Americans > 60 (> 60)
== END 2020-07-30 06:24 | disposition home or self-care (01) ==
LOC: INTOOBSV 02:22 → 1NENULAB 02:22
PROVIDERS: ADMIT Obstetrics & Gynecology; ATTEND Obstetrics & Gynecology

== ENCOUNTER → 2021-07-20 15:45 | Observation (INO) ==
[2021-07-20 15:10] LABS: Amphetamine Screen,Urine Negative ng/mL (Cutoff=1000); Barbiturate Screen,Urine Negative ng/mL (Cutoff=200); Benzodiazepines Screen,Urine Negative ng/mL (Cutoff=200); Cannabinoid Screen,Urine Positive ng/mL (Cutoff = 50); Cocaine Screen,Urine Negative ng/mL (Cutoff= 300); Opiate Screen,Urine Negative ng/mL (Cutoff=300); Phencyclidine Screen,Urine Negative ng/mL (Cutoff=25)
[2021-07-20 15:10] LABS: Bacteria,Urine Few per hpf (None-Few); Bilirubin,Urine Negative (Negative); Blood,Urine Negative (Negative); Clarity,Urine Turbid (Clear); Color,Urine Yellow (Yellow); Glucose,Urine (UA) Normal (Normal); Ketones,Urine Negative (Negative); Leukocyte Esterase,Urine Moderate (Negative); Mucus,Urine Few per lpf (None-Few); Nitrite,Urine Positive (Negative); Protein,Urine 30 mg/dL (Neg-Trace); Specific Gravity,Urine 1.021 (1.010-1.025); Squamous Epithelial Cell,Urine Few per hpf (None-Few); Transitional Epi Cells,Urine Few per hpf (None-Few); WBC,Urine 30-50 per hpf (0-3)
[~2021-07-20 15:45] MED LIST changes: -FLUARIX QUAD 2017-18 36MOS UP/PF 0.5 ML SYRINGE IM ONE; +Mag Hydrox/Al Hydrox/Simeth 30 ML UDC PO PRN; +Nitrofurantoin (BID) 100 MG CAPSULE PO SCH
== END | disposition home or self-care (01) ==
LOC: 1NENULAB
PROVIDERS: ADMIT Advanced Practice Midwife; ATTEND Advanced Practice Midwife

== ENCOUNTER → 2021-10-01 14:30 | Observation (INO) ==
[2021-10-01 13:43] LABS: Bacteria,Urine Few per hpf (None-Few); Bilirubin,Urine Negative (Negative); Blood,Urine Negative (Negative); Clarity,Urine Turbid (Clear); Color,Urine Yellow (Yellow); Glucose,Urine (UA) Normal (Normal); Ketones,Urine Negative (Negative); Leukocyte Esterase,Urine Moderate (Negative); Mucus,Urine Few per lpf (None-Few); Nitrite,Urine Negative (Negative); Protein,Urine Trace mg/dL (Neg-Trace); Specific Gravity,Urine 1.022 (1.010-1.025); Squamous Epithelial Cell,Urine Moderate per hpf (None-Few); Urobilinogen,Urine Normal (Normal); WBC,Urine 15-30 per hpf (0-3)
== END | disposition home or self-care (01) ==
LOC: 1NENULAB
PROVIDERS: ADMIT Advanced Practice Midwife; ATTEND Advanced Practice Midwife

== ENCOUNTER → 2021-10-12 20:10 | Observation (INO) ==
[2021-10-12 19:52] LABS: Bacteria,Urine Few per hpf (None-Few); Bilirubin,Urine Negative (Negative); Blood,Urine Negative (Negative); Clarity,Urine Turbid (Clear); Color,Urine Yellow (Yellow); Glucose,Urine (UA) Normal (Normal); Ketones,Urine Negative (Negative); Leukocyte Esterase,Urine Trace (Negative); Mucus,Urine Few per lpf (None-Few); Nitrite,Urine Positive (Negative); Protein,Urine Trace mg/dL (Neg-Trace); RBC,Urine 0-3 per hpf (0-3); Specific Gravity,Urine 1.025 (1.010-1.025); Squamous Epithelial Cell,Urine Moderate per hpf (None-Few); Urobilinogen,Urine Normal (Normal)
== END | disposition home or self-care (01) ==
LOC: 1NENULAB
PROVIDERS: ADMIT Advanced Practice Midwife; ATTEND Advanced Practice Midwife

== ENCOUNTER → 2021-11-01 02:10 | Observation (INO) | END | disposition home or self-care (01) | LOC: 1NENULAB | PROVIDERS: ADMIT Advanced Practice Midwife; ATTEND Advanced Practice Midwife ==

== ENCOUNTER 2021-11-01 15:55 | Inpatient (IN) ==
[~2021-11-01 15:55] MED LIST changes: +Famotidine 20 MG/2 ML VIAL IVP PRN; +Lidocaine 1% 20 ML MDV INFILT PRN; -Mag Hydrox/Al Hydrox/Simeth 30 ML UDC PO PRN; +Metoclopramide 10 MG/2 ML VIAL IVP PRN; +Naloxone 0.4 MG/ML INJ IVP PRN; -Nitrofurantoin (BID) 100 MG CAPSULE PO SCH; +Ondansetron 4 MG/2 ML VIAL IVP PRN; +Ringers Solution, Lactated 1,000 ML IVC SCH
[2021-11-01 16:26] LABS: Alanine Aminotransferase 26 Units/L (7-52); Aspartate Amino Transferase 23 Units/L (13-39); BUN/Creatinine Ratio 17 (6-26); Blood Urea Nitrogen 9 mg/dL (6-20); Lactate Dehydrogenase 172 Units/L (140-271); Uric Acid 5.1 mg/dL (2.3-7.6); eGFR For African Americans > 60 (> 60); eGFR For Non-African Americans > 60 (> 60)
[2021-11-01 16:43] LABS: Influenza A PCR Negative (Negative); Influenza B PCR Negative (Negative); Resp. Syncytial Virus PCR Negative (Negative); SARS-CoV-2 by PCR (In House) Negative (Negative)
[2021-11-01 16:49] LABS: Basophils % 0.2 %; Eosinophils # 0.1 K/mcL (0.0-0.6); Eosinophils % 0.4 %; Hematocrit 33.4 % (35.3-44.9); Hemoglobin 11.1 g/dL (11.5-15.4); Immature Granulocytes % 0.7 % (0-4); Lymphocytes # 2.3 K/mcL (0.6-4.6); Mean Corpuscular HGB Conc 33.2 g/dL (31.6-35.5); Mean Corpuscular Hemoglobin 28.6 pg (28.0-33.3); Mean Corpuscular Volume 86.1 fL (83.0-100.0); Mean Platelet Volume 10.7 fL (9.4-12.4); Monocytes # 0.9 K/mcL (0.0-1.3); Monocytes % 7.5 %; Neutrophils # 8.8 K/mcL (1.6-8.9); Platelet Count 212 K/mcL (140-400); Red Blood Count 3.88 M/mcL (3.82-4.97); Segmented Neutrophils % 72.2 %; White Blood Count 12.3 K/mcL (4.3-11.1)
[2021-11-01] MEDS ORDERED: Ondansetron 4 MG/2 ML VIAL IVP PRN (16:59)
[2021-11-01] MEDS ORDERED: Ropivacaine/PF 0.2% 20 ML VIAL EP ONE (16:59)
[2021-11-01] MEDS ORDERED: Naloxone 0.4 MG/ML INJ IVP PRN (16:59)
[2021-11-01] MEDS ORDERED: EPHEDrine 50 MG/ML VIAL IVP PRN (16:59)
[2021-11-01] MEDS ORDERED: Epidural Premix (fent/bupiv) 110 ML EP SCH (17:00)
[2021-11-01 18:22] LABS: Creatinine,Urine 46 mg/dL; Protein/Creatinine Ratio,Urine 0.41 mg/mg (0.00-0.20)
[2021-11-01 18:22] LABS: Glucose 102 mg/dL (70-105)
[2021-11-01 18:24] LABS: Amphetamine Screen,Urine Negative ng/mL (Cutoff=1000); Barbiturate Screen,Urine Negative ng/mL (Cutoff=200); Benzodiazepines Screen,Urine Negative ng/mL (Cutoff=200); Cannabinoid Screen,Urine Positive ng/mL (Cutoff = 50); Cocaine Screen,Urine Negative ng/mL (Cutoff= 300); Opiate Screen,Urine Negative ng/mL (Cutoff=300); Phencyclidine Screen,Urine Negative ng/mL (Cutoff=25)
[2021-11-01] MEDS ORDERED: Oxytocin 30 UNIT/503 ML BAG IVC SCH (18:45)
[2021-11-01 18:48] LABS: Estimated Average Glucose 114 mg/dl; Hemoglobin A1C 5.6 %
[2021-11-01 19:21] LABS: Protein/Creatinine Ratio,Urine 0.16 mg/mg (0.00-0.20)
[2021-11-01] MEDS ORDERED: Clindamycin 900 MG/50 ML 900 MG/50 ML IV.SOLN IVPB SCH (20:00)
[2021-11-02] MEDS ORDERED: Rho Immune Globulin 1,500 UNIT SYRINGE IM PRN ×2 (02:35→05:18)
[2021-11-02] MEDS ORDERED: Lanolin 7 G OINT...G. TP PRN ×2 (02:35→05:18)
[2021-11-02] MEDS ORDERED: Ondansetron ODT 4 MG TAB.RAPDIS SL PRN ×2 (02:35→05:18)
[2021-11-02] MEDS ORDERED: Benzocaine/Menthol 56 GM AEROSOL SPRAY TP PRN ×2 (02:35→05:18)
[2021-11-02] MEDS ORDERED: Measles/Mumps/Rubella Vacc 0.5 ML VIAL SQ PRN ×2 (02:35→05:18)
[2021-11-02] MEDS ORDERED: Oxytocin 30 UNIT/503 ML BAG IVC SCH ×3 (02:45→05:18)
[2021-11-02] MEDS ORDERED: Acetaminophen 325 MG TABLET PO SCH (02:45)
[2021-11-02] MEDS ORDERED: Ropivacaine/PF 0.2% 20 ML VIAL EP ONE (05:18)
[2021-11-02] MEDS ORDERED: Epidural Premix (fent/bupiv) 110 ML EP SCH (05:18)
[2021-11-02] MEDS ORDERED: EPHEDrine 50 MG/ML VIAL IVP PRN (05:18)
[2021-11-02] MEDS ORDERED: Ibuprofen 600 MG TABLET PO SCH (05:35)
[2021-11-02] MEDS: Acetaminophen 325 MG TABLET PO SCH ×3 (07:40→20:14)
[2021-11-02] MEDS: Prenatal Vit/FA 1 EACH TABLET PO SCH (07:40)
[2021-11-02] MEDS ORDERED: Prenatal Vit/FA 1 EACH TABLET PO SCH (09:00)
[2021-11-02] MEDS ORDERED: Clindamycin 900 MG/50 ML 900 MG/50 ML IV.SOLN IVPB SCH (12:00)
[2021-11-02] MEDS: Ibuprofen 600 MG TABLET PO SCH ×3 (12:59→23:04)
[2021-11-03] MEDS: Ibuprofen 600 MG TABLET PO SCH (06:51)
[2021-11-03] MEDS: Acetaminophen 325 MG TABLET PO SCH (06:52)
[2021-11-03] MEDS: Prenatal Vit/FA 1 EACH TABLET PO SCH (07:39)
[2021-11-03 08:44] VITALS: BP 101/63; PULSE 88; TEMP 98; O2SAT 97
== END 2021-11-03 12:34 | disposition home or self-care (01) | DRG 807 ==
LOC: 1NENULAB → 1NENUOBS 11-02 05:19
PROVIDERS: ADMIT Advanced Practice Midwife; ATTEND Advanced Practice Midwife